=== PATIENT | female | born 1960 | race Two or more races ===

== ENCOUNTER 2016-12-10 14:17 | Emergency (ER) | payer OTHER ==
[~2016-12-10] VITALS: Ht 167.6 cm; Wt 86.2 kg
[~2016-12-10 14:17] MED LIST: ERGOCALCIF50000 UNIT PO; HYDROCODON-ACE1 EAC7 PO; IBUPROFEN200 M1 PO; METFORMIN HCL500 MG PO; NAPROSYN-EC 37375 MG PO; PRAVASTATIN SOD40 MG PO; PROAIR HFA8.5 GM IH; ROBITUSSIN AC,T10 ML PO
[2016-12-10 15:16] LABS: HEMATOCRIT 42.7 % (36.0-46.0); MCH 28.4 PG (29.0-34.0); MCHC 31.9 G/DL (30.0-36.0); MCV 89.1 FL (83-99); MEAN PLAT.VOLUME 10.4 uM^3 (9.5-12.4); PLATELET COUNT 215 K/uL (156-360); RBC DIS.WIDTH-CV 13.4 % (11.8-14.6); RBC DIS.WIDTH-SD 44.6 % (39-53); RED BLOOD COUNT 4.79 M/uL (3.80-5.20); WHITE BLOOD COUNT 8.5 K/uL (4.1-10.2)
[2016-12-10 15:27] LABS: CHLORIDE 105 mEq/L (99-109); POTASSIUM 4.5 mEq/L (3.7-5.4); SODIUM 140 mEq/L (136-147)
[2016-12-10 15:29] LABS: GLUCOSE 117 mg/dL (70-99)
[2016-12-10 15:30] LABS: ANION GAP 9 MEQ/L (2-14)
[2016-12-10 15:32] LABS: GFR ESTIMATE (CALCULATED) > 59 mL/min/
[2016-12-10 15:33] LABS: UREA NITROGEN (BUN) 12 mg/dL (9-23)
[2016-12-10 15:38] LABS: TROP-I INTERPRETATION NEGATIVE; TROPONIN-I < 0.01 ng/mL (0.0-0.30)
[2016-12-10 16:56] LABS: D-DIMER ELISA 0.67 mg/L FEU (< 0.57)
[2016-12-10 18:26] LABS: INFLUENZA A VIRAL ANTIGEN NEGATIVE; INFLUENZA B VIRAL ANTIGEN POSITIVE
[2016-12-10] MEDS ORDERED: TAMIFLU75 MG PO (18:48)
[2016-12-10 19:01] VITALS: BP 117/88
== END 2016-12-10 19:01 | disposition home or self-care (01) ==
LOC: EME 14:17
PROVIDERS: Physician Assistant
DX: J10.1 Influenza due to other identified influenza virus with other respiratory manifestations (principal); E11.9 Type 2 diabetes mellitus without complications; Z79.84 Long term (current) use of oral hypoglycemic drugs
CPT/HCPCS: 71020; 71275; 80048; 84484; 85027; 85379; 87502; 93005; 99281; 99284; J7030

== ENCOUNTER → 2017-06-14 | Outpatient (CLI) | payer OTHER ==
[~2017-06-14] VITALS: Ht 157.5 cm; Wt 81.7 kg
[~2017-06-14] MED LIST changes: +CELEXA10 MG PO; +TAMIFLU75 MG PO
[2017-06-14 07:28] LABS: POINT-OF-CARE METER ID UU14107333
== END | disposition home or self-care (01) ==
LOC: AMB 06:56
PROVIDERS: Internal Medicine
DX: Z12.11 Encounter for screening for malignant neoplasm of colon (principal); D12.3 Benign neoplasm of transverse colon; D12.0 Benign neoplasm of cecum; D12.2 Benign neoplasm of ascending colon; K64.8 Other hemorrhoids; K62.89 Other specified diseases of anus and rectum; Z80.0 Family history of malignant neoplasm of digestive organs; K21.9 Gastro-esophageal reflux disease without esophagitis; E66.9 Obesity, unspecified; Z68.33 Body mass index [BMI] 33.0-33.9, adult; E11.9 Type 2 diabetes mellitus without complications; Z79.84 Long term (current) use of oral hypoglycemic drugs; Z83.3 Family history of diabetes mellitus; Z79.82 Long term (current) use of aspirin
CPT/HCPCS: 82948; 88305